=== PATIENT | male | born 1960 | race Caucasian/White ===

== ENCOUNTER 2020-10-16 08:29 | Inpatient (IN) | payer MEDICAID ==
[~2020-10-16] VITALS: Ht 167.6 cm; Wt 113.4 kg
[2020-10-16 09:39] LABS: BASOPHILS % 0.6 % (0.0-2.0); HEMATOCRIT. 29.8 % (42.0-52.0); HEMOGLOBIN. 10.2 g/dL (14.0-18.0); LYMPHOCYTES % 28.2 % (20.0-50.0); MEAN CORPUSCULAR HEMOGLOBIN 31.4 pg (28.0-32.0); MEAN CORPUSCULAR VOLUME 92.3 fL (80.0-94.0); MEAN PLATELET VOLUME 9.2 fl (7.4-10.4); MONOCYTES % 7.8 % (2.0-8.0); NEUTROPHILS % 61.4 % (40.0-76.0); PLATELET 194 x1000/uL (130-400); RED BLOOD CELL COUNT 3.23 mill/uL (4.7-6.1); RED CELL DISTRIBUTION WIDTH 15.2 % (11.6-14.6)
[2020-10-16 09:41] LABS: CHLORIDE 112 mEq/L (98-107)
[2020-10-16] MEDS ORDERED: ONDANSETRON HCL 4MG/2ML INJ IV PRN (11:30)
[2020-10-16] MEDS ORDERED: DIPHENHYDRAMINE 50MG/ML VIAL IV PRN (11:30)
[2020-10-16] MEDS ORDERED: MORPHINE SULFATE 2 MG/ML CPJ (NOT FOR IM USE) IV PRN (11:30)
[2020-10-16] MEDS ORDERED: IPRATROPIUM/ALBUTEROL 0.5-3(2.5)MG/3ML NEB HHN PRN (11:30)
[2020-10-16] MEDS ORDERED: ACETAMINOPHEN 325MG TABLET PO PRN (11:30)
[2020-10-16] MEDS: CLOPIDOGREL 75MG TABLET PO SCH (14:14)
[2020-10-16] MEDS: ASPIRIN 81MG EC TABLET PO SCH (14:14)
[2020-10-16 14:16] VITALS: BP 160/74
[2020-10-16 14:30] VITALS: BP 170/74
[2020-10-16 16:00] VITALS: BP 155/56
[2020-10-16] MEDS: SUCRALFATE 1G TABLET PO SCH ×2 (18:19→20:17)
[2020-10-16 20:00] VITALS: BP 159/57
[2020-10-16] MEDS: ATORVASTATIN CALCIUM 40MG TABLET PO SCH (20:17)
[2020-10-16] MEDS ORDERED: INFLUENZA VACCINE 05/PF 0.5 ML VIAL IM ONE (20:30)
[2020-10-16] MEDS ORDERED: PNEUMOCOCCAL 23-VAL P-SAC VAC 0.5 ML IM ONE (20:30)
[2020-10-17] VITALS: BP 144/52
[2020-10-17 04:00] VITALS: BP 144/61
[2020-10-17] MEDS: SUCRALFATE 1G TABLET PO SCH ×4 (06:02→20:23)
[2020-10-17] MEDS: PANTOPRAZOLE 40MG DR TABLET PO SCH (06:03)
[2020-10-17 06:17] LABS: BASOPHILS % 0.5 % (0.0-2.0); EOSINOPHILS % 3.7 % (0.0-5.0); HEMATOCRIT. 28.2 % (42.0-52.0); HEMOGLOBIN. 9.9 g/dL (14.0-18.0); LYMPHOCYTES % 34.8 % (20.0-50.0); MEAN CORPUSCULAR HEMOGLOBIN 32.4 pg (28.0-32.0); MEAN CORPUSCULAR VOLUME 92.3 fL (80.0-94.0); MEAN PLATELET VOLUME 9.9 fl (7.4-10.4); MONOCYTES % 8.1 % (2.0-8.0); NEUTROPHILS % 52.9 % (40.0-76.0); PLATELET 179 x1000/uL (130-400); RED BLOOD CELL COUNT 3.05 mill/uL (4.7-6.1); RED CELL DISTRIBUTION WIDTH 15.5 % (11.6-14.6)
[2020-10-17 07:06] LABS: CHLORIDE 111 mEq/L (98-107)
[2020-10-17 07:16] LABS: HDL CHOLESTEROL 52 mg/dL (40-59)
[2020-10-17 07:20] LABS: LDL CHOLESTEROL 93 mg/dL (5-100)
[2020-10-17 08:00] VITALS: BP 162/82
[2020-10-17] MEDS: ASPIRIN 81MG EC TABLET PO SCH (09:30)
[2020-10-17] MEDS: CLONIDINE 0.1MG TABLET PO PRN ×2 (09:30→20:24)
[2020-10-17] MEDS: CLOPIDOGREL 75MG TABLET PO SCH (09:31)
[2020-10-17 12:00] VITALS: BP 135/62
[2020-10-17 16:00] VITALS: BP 141/64
[2020-10-17 20:00] VITALS: BP 190/78
[2020-10-17] MEDS: ATORVASTATIN CALCIUM 40MG TABLET PO SCH (20:23)
[2020-10-18] VITALS: BP 138/44
[2020-10-18 04:00] VITALS: BP 143/68
[2020-10-18] MEDS: PANTOPRAZOLE 40MG DR TABLET PO SCH (06:19)
[2020-10-18] MEDS: SUCRALFATE 1G TABLET PO SCH ×4 (06:19→21:08)
[2020-10-18 06:56] LABS: BASOPHILS % 0.4 % (0.0-2.0); EOSINOPHILS % 4.9 % (0.0-5.0); HEMOGLOBIN. 10.3 g/dL (14.0-18.0); LYMPHOCYTES % 33.4 % (20.0-50.0); MEAN CORPUSCULAR VOLUME 93.1 fL (80.0-94.0); MEAN PLATELET VOLUME 9.6 fl (7.4-10.4); MONOCYTES % 7.9 % (2.0-8.0); NEUTROPHILS % 53.4 % (40.0-76.0); PLATELET 185 x1000/uL (130-400); RED BLOOD CELL COUNT 3.22 mill/uL (4.7-6.1); RED CELL DISTRIBUTION WIDTH 15.6 % (11.6-14.6)
[2020-10-18 06:59] LABS: CHLORIDE 110 mEq/L (98-107)
[2020-10-18 08:00] VITALS: BP 140/64
[2020-10-18] MEDS: CLOPIDOGREL 75MG TABLET PO SCH (09:01)
[2020-10-18] MEDS: ASPIRIN 81MG EC TABLET PO SCH (09:01)
[2020-10-18 12:00] VITALS: BP 149/67
[2020-10-18 16:00] VITALS: BP 154/66
[2020-10-18 20:00] VITALS: BP 165/75
[2020-10-18] MEDS: ATORVASTATIN CALCIUM 40MG TABLET PO SCH (21:08)
[2020-10-18] MEDS: CLONIDINE 0.1MG TABLET PO PRN (21:17)
[2020-10-19] VITALS: BP 135/64
[2020-10-19 04:00] VITALS: BP 130/76
[2020-10-19] MEDS: PANTOPRAZOLE 40MG DR TABLET PO SCH (05:49)
[2020-10-19] MEDS: SUCRALFATE 1G TABLET PO SCH (05:49)
[2020-10-19 06:51] LABS: BASOPHILS % 0.6 % (0.0-2.0); EOSINOPHILS % 4.4 % (0.0-5.0); HEMATOCRIT. 28.3 % (42.0-52.0); LYMPHOCYTES % 35.6 % (20.0-50.0); MEAN CORPUSCULAR HEMOGLOBIN 32.7 pg (28.0-32.0); MEAN CORPUSCULAR VOLUME 92.5 fL (80.0-94.0); MEAN PLATELET VOLUME 9.8 fl (7.4-10.4); MONOCYTES % 8.3 % (2.0-8.0); NEUTROPHILS % 51.1 % (40.0-76.0); PLATELET 169 x1000/uL (130-400); RED BLOOD CELL COUNT 3.06 mill/uL (4.7-6.1); RED CELL DISTRIBUTION WIDTH 15.4 % (11.6-14.6)
[2020-10-19 08:00] VITALS: BP 140/62
[2020-10-19] MEDS ORDERED: LIP40 PO (08:17)
[2020-10-19] MEDS ORDERED: PANT40TA51 PO (08:17)
[2020-10-19] MEDS ORDERED: SUCR1TAB30 PO (08:17)
[2020-10-19] MEDS ORDERED: CLOP75TA15 PO (08:17)
[2020-10-19] MEDS ORDERED: ASPI-1406 PO (08:17)
[2020-10-19 08:42] VITALS: BP 140/62
[2020-10-19] MEDS: ASPIRIN 81MG EC TABLET PO SCH (09:27)
[2020-10-19] MEDS: CLOPIDOGREL 75MG TABLET PO SCH (09:27)
== END 2020-10-19 12:40 | disposition home or self-care (01) | DRG 203 ==
LOC: ER 08:29 → 5WST 11:17 → ENRESERV 11:46
PROVIDERS: ADMIT Internal Medicine; ATTEND Internal Medicine
DX: M94.0 Chondrocostal junction syndrome [Tietze] (principal); E11.622 Type 2 diabetes mellitus with other skin ulcer; I11.0 Hypertensive heart disease with heart failure; I50.9 Heart failure, unspecified; I25.10 Atherosclerotic heart disease of native coronary artery without angina pectoris; D64.9 Anemia, unspecified; E78.5 Hyperlipidemia, unspecified; J44.9 Chronic obstructive pulmonary disease, unspecified; K29.60 Other gastritis without bleeding; Z95.5 Presence of coronary angioplasty implant and graft; Z88.5 Allergy status to narcotic agent; Z88.0 Allergy status to penicillin; Z79.899 Other long term (current) drug therapy
CPT/HCPCS: 36415; 71045; 80048; 80053; 80061; 82962; 83880; 84443; 84484; 85025; 87070; 90686; 90732; 93005; 93970; 99285; J1200

== ENCOUNTER 2021-09-07 13:44 | Emergency (ER) | payer MEDICAID ==
[~2021-09-07] VITALS: Ht 167.6 cm; Wt 111.0 kg
[~2021-09-07 13:44] MED LIST: ALBU18HF2 IH; ASPI-1406 PO; CLOP75TA15 PO; FURO40TA5 PO; ISOS30TA91 PO; LANC-335 MC; LIP40 PO; ONDA4TAB5 MT; PANT40TA51 PO; SUCR1TAB30 PO
[2021-09-07 16:54] LABS: BASOPHILS % 0.8 % (0.0-2.0); EOSINOPHILS % 2.6 % (0.0-5.0); HEMATOCRIT. 36.2 % (42.0-52.0); HEMOGLOBIN. 11.8 g/dL (14.0-18.0); LYMPHOCYTES % 25.4 % (20.0-50.0); MEAN CORPUSCULAR HEMOGLOBIN 28.8 pg (28.0-32.0); MEAN CORPUSCULAR VOLUME 88.6 fL (80.0-94.0); MEAN PLATELET VOLUME 8.7 fl (7.4-10.4); MONOCYTES % 8.9 % (2.0-8.0); NEUTROPHILS % 62.3 % (40.0-76.0); PLATELET 178 x1000/uL (130-400); RED BLOOD CELL COUNT 4.08 mill/uL (4.7-6.1); RED CELL DISTRIBUTION WIDTH 16.3 % (11.6-14.6)
[2021-09-07 17:00] LABS: CHLORIDE 112 mEq/L (98-107)
[2021-09-07 19:30] VITALS: BP 169/86
[2021-09-07] MEDS ORDERED: FUROSEMIDE 40MG/4ML VIAL IVP ONE (20:00)
== END 2021-09-07 20:11 | disposition left against medical advice (07) ==
LOC: ER 13:44 → CANBEDREQ 09-08 04:19
DX: I11.0 Hypertensive heart disease with heart failure (principal); I50.9 Heart failure, unspecified; I21.3 ST elevation (STEMI) myocardial infarction of unspecified site; J44.1 Chronic obstructive pulmonary disease with (acute) exacerbation; J45.909 Unspecified asthma, uncomplicated; Z20.822 Contact with and (suspected) exposure to COVID-19; Z88.0 Allergy status to penicillin; Z88.5 Allergy status to narcotic agent; Z79.899 Other long term (current) drug therapy; Z98.890 Other specified postprocedural states
CPT/HCPCS: 36415; 71045; 80053; 83880; 84484; 85025; 87426; 93005; 93970; 99285; J1940

== ENCOUNTER 2021-10-14 18:59 | Inpatient (IN) | payer MEDICAID ==
[~2021-10-14] VITALS: Ht 167.6 cm; Wt 121.6 kg
[2021-10-14] MEDS ORDERED: METHYLPREDNISOLONE SOD SUCC 125 MG/2 ML VIAL IV STA (21:04)
[2021-10-14] MEDS ORDERED: IPRATROPIUM BROMIDE (0.02%) 0.5MG/2.5ML NEB HHN STA ×2 (21:04)
[2021-10-14] MEDS ORDERED: ALBUTEROL (0.083%) 2.5MG/3ML NEB HHN STA (21:04)
[2021-10-14] MEDS ORDERED: NITROGLYCERIN OINT 1GM/INCH UDPKT TD ONE (21:15)
[2021-10-14] MEDS ORDERED: ASPIRIN 81MG TABLET PO ONE (21:15)
[2021-10-14] MEDS ORDERED: FUROSEMIDE 40MG/4ML VIAL IV ONE (21:15)
[2021-10-14 21:50] LABS: BASOPHILS % 0.4 % (0.0-2.0); EOSINOPHILS % 1.5 % (0.0-5.0); HEMATOCRIT. 33.2 % (42.0-52.0); HEMOGLOBIN. 10.8 g/dL (14.0-18.0); LYMPHOCYTES % 13.4 % (20.0-50.0); MEAN CORPUSCULAR HEMOGLOBIN 29.1 pg (28.0-32.0); MEAN PLATELET VOLUME 9.2 fl (7.4-10.4); MONOCYTES % 10.3 % (2.0-8.0); NEUTROPHILS % 74.4 % (40.0-76.0); PLATELET 160 x1000/uL (130-400); RED BLOOD CELL COUNT 3.73 mill/uL (4.7-6.1); RED CELL DISTRIBUTION WIDTH 17.5 % (11.6-14.6)
[2021-10-14 22:11] LABS: CHLORIDE 111 mEq/L (98-107)
[2021-10-14] MEDS ORDERED: POTASSIUM CHLORIDE 20MEQ TABLET SR PO ONE (22:30)
[2021-10-14] MEDS ORDERED: MORPHINE SULFATE 4 MG/ML CPJ (NOT FOR IM USE) IV STA (22:48)
[2021-10-14] MEDS ORDERED: ONDANSETRON HCL 4MG/2ML INJ IV STA (22:48)
[2021-10-14] MEDS ORDERED: IPRATROPIUM/ALBUTEROL 0.5-3(2.5)MG/3ML NEB NEB PRN (23:00)
[2021-10-14] MEDS ORDERED: ACETAMINOPHEN 325MG TABLET PO PRN (23:00)
[2021-10-14] MEDS ORDERED: GUAIFENESIN 200MG/10ML SUGAR FREE UDC PO PRN (23:00)
[2021-10-14] MEDS ORDERED: ONDANSETRON HCL 4MG/2ML INJ IV PRN (23:00)
[2021-10-14] MEDS ORDERED: MAGNESIUM/ALUMINUM HYDROXIDE/SIMETHICONE 30ML UDC PO PRN (23:00)
[2021-10-14] MEDS ORDERED: NALOXONE HCL 0.4 MG/ML 1ML VIAL IV PRN (23:15)
[2021-10-15 03:00] VITALS: BP 155/81
[2021-10-15] MEDS: HYDROCODONE/ACETAMINOPHEN 5/325MG TABLET PO PRN ×3 (03:43→23:18)
[2021-10-15 04:00] VITALS: BP 155/81
[2021-10-15 07:03] LABS: HEMATOCRIT. 32.8 % (42.0-52.0); HEMOGLOBIN. 10.8 g/dL (14.0-18.0); MEAN CORPUSCULAR HEMOGLOBIN 29.7 pg (28.0-32.0); MEAN CORPUSCULAR VOLUME 90.2 fL (80.0-94.0); MEAN PLATELET VOLUME 9.3 fl (7.4-10.4); PLATELET 169 x1000/uL (130-400); RED BLOOD CELL COUNT 3.64 mill/uL (4.7-6.1); RED CELL DISTRIBUTION WIDTH 17.2 % (11.6-14.6)
[2021-10-15 07:09] LABS: CHLORIDE 111 mEq/L (98-107)
[2021-10-15 07:18] LABS: PHOSPHORUS 4.8 mg/dL (2.5-4.9)
[2021-10-15 08:08] VITALS: BP 132/76
[2021-10-15] MEDS ORDERED: ENOXAPARIN 40MG/0.4ML SYR SUBCUT SCH (09:00)
[2021-10-15] MEDS ORDERED: ISOSORBIDE MONONITRATE 30MG TABLET SR 24HR PO SCH (09:45)
[2021-10-15] MEDS: CLOPIDOGREL 75MG TABLET PO SCH (10:30)
[2021-10-15] MEDS: ASPIRIN 81MG EC TABLET PO SCH (10:30)
[2021-10-15] MEDS: PANTOPRAZOLE 40MG DR TABLET PO SCH (10:30)
[2021-10-15] MEDS: FUROSEMIDE 40MG/4ML VIAL IVP SCH ×2 (11:20→18:17)
[2021-10-15] MEDS ORDERED: DEXTROSE 50% WATER 50ML SYRINGE IV PRN (11:30)
[2021-10-15 12:00] VITALS: BP 111/56
[2021-10-15] MEDS: NITROGLYCERIN OINT 1GM/INCH UDPKT TD SCH ×3 (12:00→23:19)
[2021-10-15] MEDS ORDERED: INFLUENZA VACCINE 05/PF 0.5 ML SYRINGE IM ONE (12:00)
[2021-10-15] MEDS: BLOOD SUGAR DIAGNOSTIC STRIP TEST SCH ×3 (12:03→21:16)
[2021-10-15] MEDS: INSULIN LISPRO 100 UNITS/ML SUBCUT SCH ×3 (12:26→21:00)
[2021-10-15] MEDS: SUCRALFATE 1G TABLET PO SCH ×3 (12:28→21:15)
[2021-10-15 12:55] LABS: PLATELET ESTIMATE NORMAL
[2021-10-15 16:00] VITALS: BP 115/59
[2021-10-15 20:00] VITALS: BP 118/61
[2021-10-15] MEDS: ENOXAPARIN 40MG/0.4ML SYR SUBCUT SCH (21:15)
[2021-10-15] MEDS: ATORVASTATIN CALCIUM 40MG TABLET PO SCH (21:15)
[2021-10-15] MEDS ORDERED: METHYLPREDNISOLONE SOD SUCC 125 MG/2 ML VIAL IV SCH (22:00)
[2021-10-16] VITALS: BP 99/52
[2021-10-16 04:00] VITALS: BP 128/67
[2021-10-16] MEDS: PANTOPRAZOLE 40MG DR TABLET PO SCH (06:38)
[2021-10-16] MEDS: NITROGLYCERIN OINT 1GM/INCH UDPKT TD SCH ×4 (06:38→23:46)
[2021-10-16] MEDS: SUCRALFATE 1G TABLET PO SCH ×4 (06:38→20:38)
[2021-10-16] MEDS: BLOOD SUGAR DIAGNOSTIC STRIP TEST SCH ×4 (06:38→20:39)
[2021-10-16 07:13] LABS: HEMATOCRIT. 32.3 % (42.0-52.0); HEMOGLOBIN. 10.7 g/dL (14.0-18.0); MEAN CORPUSCULAR HEMOGLOBIN 29.7 pg (28.0-32.0); MEAN CORPUSCULAR VOLUME 89.9 fL (80.0-94.0); MEAN PLATELET VOLUME 9.4 fl (7.4-10.4); PLATELET 169 x1000/uL (130-400); RED CELL DISTRIBUTION WIDTH 17.5 % (11.6-14.6)
[2021-10-16 07:22] LABS: CHLORIDE 108 mEq/L (98-107)
[2021-10-16 08:00] VITALS: BP 148/72
[2021-10-16] MEDS: ASPIRIN 81MG EC TABLET PO SCH (08:32)
[2021-10-16] MEDS: INSULIN LISPRO 100 UNITS/ML SUBCUT SCH ×4 (08:32→20:39)
[2021-10-16] MEDS: ENOXAPARIN 40MG/0.4ML SYR SUBCUT SCH ×2 (08:33→20:38)
[2021-10-16] MEDS: FUROSEMIDE 40MG/4ML VIAL IVP SCH ×2 (08:33→17:15)
[2021-10-16] MEDS: CLOPIDOGREL 75MG TABLET PO SCH (08:33)
[2021-10-16 08:36] LABS: PLATELET ESTIMATE NORMAL
[2021-10-16 12:18] VITALS: BP 131/64
[2021-10-16 12:29] LABS: INR 1.1; PROTHROMBIN TIME 11.8 sec (9.6-11.0)
[2021-10-16] MEDS ORDERED: IPRATROPIUM/ALBUTEROL 0.5-3(2.5)MG/3ML NEB HHN PRN (13:15)
[2021-10-16 15:43] VITALS: BP 125/70
[2021-10-16 16:53] LABS: TOTAL IRON BINDING CAPACITY 424 ug/dL (250-450)
[2021-10-16 17:14] LABS: CARCINO EMBRYONIC ANTIGEN 1.7 ng/ml; FERRITIN 56 ng/mL (22-322)
[2021-10-16 17:22] LABS: VITAMIN B12 SERUM 348 pg/mL (211-911)
[2021-10-16 17:25] LABS: HEPATITIS B SURFACE ANTIGEN NEGATIVE
[2021-10-16 20:00] VITALS: BP 138/61
[2021-10-16] MEDS: ATORVASTATIN CALCIUM 40MG TABLET PO SCH (20:38)
[2021-10-16] MEDS: HYDROCODONE/ACETAMINOPHEN 5/325MG TABLET PO PRN (23:53)
[2021-10-17] VITALS: BP 122/58
[2021-10-17] MEDS: IPRATROPIUM/ALBUTEROL 0.5-3(2.5)MG/3ML NEB NEB SCH ×6 (00:29→21:51)
[2021-10-17 04:00] VITALS: BP 126/60
[2021-10-17] MEDS: NITROGLYCERIN OINT 1GM/INCH UDPKT TD SCH ×4 (06:40→23:39)
[2021-10-17] MEDS: BLOOD SUGAR DIAGNOSTIC STRIP TEST SCH ×4 (06:40→21:25)
[2021-10-17] MEDS: PANTOPRAZOLE 40MG DR TABLET PO SCH (06:40)
[2021-10-17] MEDS: SUCRALFATE 1G TABLET PO SCH ×4 (06:40→21:24)
[2021-10-17 06:45] LABS: BASOPHILS % 0.2 % (0.0-2.0); EOSINOPHILS % 0.7 % (0.0-5.0); HEMATOCRIT. 32.1 % (42.0-52.0); HEMOGLOBIN. 10.3 g/dL (14.0-18.0); LYMPHOCYTES % 15.4 % (20.0-50.0); MEAN CORPUSCULAR HEMOGLOBIN 29.1 pg (28.0-32.0); MEAN CORPUSCULAR VOLUME 90.4 fL (80.0-94.0); MEAN PLATELET VOLUME 9.2 fl (7.4-10.4); MONOCYTES % 8.6 % (2.0-8.0); NEUTROPHILS % 75.1 % (40.0-76.0); PLATELET 165 x1000/uL (130-400); RED BLOOD CELL COUNT 3.55 mill/uL (4.7-6.1); RED CELL DISTRIBUTION WIDTH 17.9 % (11.6-14.6)
[2021-10-17 06:55] LABS: INR 1.1; PROTHROMBIN TIME 11.4 sec (9.6-11.0)
[2021-10-17] MEDS ORDERED: METOLAZONE 2.5MG TABLET PO NR (07:30)
[2021-10-17] MEDS: INSULIN LISPRO 100 UNITS/ML SUBCUT SCH ×5 (07:50→21:00)
[2021-10-17 08:00] VITALS: BP 114/59
[2021-10-17] MEDS: HYDROCODONE/ACETAMINOPHEN 5/325MG TABLET PO PRN (08:44)
[2021-10-17] MEDS: FUROSEMIDE 40MG/4ML VIAL IVP SCH (08:44)
[2021-10-17] MEDS: SERTRALINE HCL 25MG TABLET PO SCH (10:47)
[2021-10-17] MEDS: RISPERIDONE 0.5MG TABLET PO SCH ×2 (10:47→21:24)
[2021-10-17 12:00] VITALS: BP 130/71
[2021-10-17] MEDS: GABAPENTIN 100MG CAPSULE PO SCH ×2 (13:27→21:25)
[2021-10-17 16:00] VITALS: BP 104/53
[2021-10-17 16:47] LABS: BG BASE EXCESS 2.7 mmol/L (-2.0-2.0); BG CARBOXYHEMOGLOBIN 0.1 % (0.5-1.5); BG DEOXYHEMOGLOBIN 12.8 % (0.0-5.0); BG FRACTION INSPIRED OXYGEN 21; BG HCO3 ACT 30.2 mmol/L (22.0-26.0); BG METHEMOGLOBIN 0.4 % (0.0-1.5); BG OXYGEN SATURATION 87.1 % (92.0-98.5); BG OXYHEMOGLOBIN 86.7 % (94.0-97.0); BG PCO2 62.4 mmHg (35.0-45.0); BG PH 7.302 (7.350-7.450); BG PO2 55.2 mmHg (75.0-100.0); BG SAMPLE SITE LEFT RADIAL; BG TOTAL HEMOGLOBIN 10.4 g/dL (12.0-18.0); BG VENT MODE ROOM AIR
[2021-10-17] MEDS: ASCORBIC ACID 500 MG TABLET PO SCH (16:51)
[2021-10-17] MEDS: IRON SUCROSE COMPLEX 100 MG/5 ML ML IV SCH (16:52)
[2021-10-17 20:00] VITALS: BP 131/71
[2021-10-17] MEDS: QUETIAPINE FUMARATE 50MG TABLET PO SCH (21:24)
[2021-10-17] MEDS: ATORVASTATIN CALCIUM 40MG TABLET PO SCH (21:25)
[2021-10-17] MEDS: LACTULOSE 20G/30ML UDC PO SCH (21:25)
[2021-10-18] VITALS: BP 128/58
[2021-10-18] MEDS: IPRATROPIUM/ALBUTEROL 0.5-3(2.5)MG/3ML NEB NEB SCH ×6 (01:16→20:48)
[2021-10-18 04:00] VITALS: BP 124/78
[2021-10-18] MEDS: LACTULOSE 20G/30ML UDC PO SCH ×3 (06:24→21:51)
[2021-10-18] MEDS: NITROGLYCERIN OINT 1GM/INCH UDPKT TD SCH ×3 (06:24→16:55)
[2021-10-18] MEDS: SUCRALFATE 1G TABLET PO SCH ×4 (06:25→21:51)
[2021-10-18] MEDS: BLOOD SUGAR DIAGNOSTIC STRIP TEST SCH ×4 (06:25→21:43)
[2021-10-18] MEDS: GABAPENTIN 100MG CAPSULE PO SCH ×3 (06:25→21:51)
[2021-10-18] MEDS: PANTOPRAZOLE 40MG DR TABLET PO SCH (06:25)
[2021-10-18 07:45] LABS: INR 1.1; PROTHROMBIN TIME 11.5 sec (9.6-11.0)
[2021-10-18] MEDS: INSULIN LISPRO 100 UNITS/ML SUBCUT SCH ×4 (07:50→21:56)
[2021-10-18 07:52] LABS: BASOPHILS % 0.4 % (0.0-2.0); EOSINOPHILS % 1.1 % (0.0-5.0); HEMATOCRIT. 30.5 % (42.0-52.0); MEAN CORPUSCULAR HEMOGLOBIN 29.8 pg (28.0-32.0); MEAN CORPUSCULAR VOLUME 90.8 fL (80.0-94.0); MEAN PLATELET VOLUME 9.4 fl (7.4-10.4); NEUTROPHILS % 68.5 % (40.0-76.0); PLATELET 88 x1000/uL (130-400); RED BLOOD CELL COUNT 3.36 mill/uL (4.7-6.1); RED CELL DISTRIBUTION WIDTH 17.5 % (11.6-14.6)
[2021-10-18 08:00] VITALS: BP 136/65
[2021-10-18 08:06] LABS: CHLORIDE 108 mEq/L (98-107)
[2021-10-18] MEDS: SERTRALINE HCL 25MG TABLET PO SCH (08:46)
[2021-10-18] MEDS: RISPERIDONE 0.5MG TABLET PO SCH ×2 (08:46→18:43)
[2021-10-18] MEDS: ASCORBIC ACID 500 MG TABLET PO SCH ×2 (08:46→16:55)
[2021-10-18 10:11] LABS: BG BASE EXCESS 6.4 mmol/L (-2.0-2.0); BG CARBOXYHEMOGLOBIN 0.1 % (0.5-1.5); BG DEOXYHEMOGLOBIN 18.6 % (0.0-5.0); BG METHEMOGLOBIN 0.1 % (0.0-1.5); BG OXYGEN SATURATION 81.4 % (92.0-98.5); BG OXYHEMOGLOBIN 81.2 % (94.0-97.0); BG PCO2 75.1 mmHg (35.0-45.0); BG PH 7.286 (7.350-7.450); BG PO2 47.8 mmHg (75.0-100.0); BG SAMPLE SITE RIGHT RADIAL; BG TOTAL HEMOGLOBIN 10.6 g/dL (12.0-18.0); BG VENT MODE NASAL CANNULA
[2021-10-18] MEDS ORDERED: LIDOCAINE HCL/PF 1% 2ML VIAL ONE (11:13)
[2021-10-18 12:03] LABS: BG BASE EXCESS 5.8 mmol/L (-2.0-2.0); BG CARBOXYHEMOGLOBIN 0.1 % (0.5-1.5); BG DEOXYHEMOGLOBIN 1.7 % (0.0-5.0); BG HCO3 ACT 34.2 mmol/L (22.0-26.0); BG METHEMOGLOBIN 0.3 % (0.0-1.5); BG OXYGEN SATURATION 98.3 % (92.0-98.5); BG OXYHEMOGLOBIN 97.9 % (94.0-97.0); BG PCO2 74.1 mmHg (35.0-45.0); BG PH 7.282 (7.350-7.450); BG PO2 130.4 mmHg (75.0-100.0); BG SAMPLE SITE RIGHT RADIAL; BG TOTAL HEMOGLOBIN 10.3 g/dL (12.0-18.0); BG VENT MODE NASAL CANNULA
[2021-10-18 12:15] VITALS: BP 117/58
[2021-10-18] MEDS ORDERED: IOHEXOL-350 100 ML BOTTLE ONE (13:33)
[2021-10-18] MEDS ORDERED: FUROSEMIDE 40MG/4ML VIAL IVP SCH (14:00)
[2021-10-18] MEDS: IRON SUCROSE COMPLEX 100 MG/5 ML ML IV SCH (15:02)
[2021-10-18 15:52] VITALS: BP 138/61
[2021-10-18] MEDS: QUETIAPINE FUMARATE 50MG TABLET PO SCH (18:45)
[2021-10-18 20:00] VITALS: BP 133/81
[2021-10-18] MEDS: ATORVASTATIN CALCIUM 40MG TABLET PO SCH (21:51)
[2021-10-19] VITALS: BP 155/95
[2021-10-19] MEDS: IPRATROPIUM/ALBUTEROL 0.5-3(2.5)MG/3ML NEB NEB SCH ×6 (00:37→20:41)
[2021-10-19] MEDS: NITROGLYCERIN OINT 1GM/INCH UDPKT TD SCH ×4 (01:01→18:16)
[2021-10-19 04:31] VITALS: BP 118/64
[2021-10-19] MEDS: SUCRALFATE 1G TABLET PO SCH ×4 (06:19→21:41)
[2021-10-19] MEDS: LACTULOSE 20G/30ML UDC PO SCH ×3 (06:19→21:41)
[2021-10-19] MEDS: PANTOPRAZOLE 40MG DR TABLET PO SCH (06:19)
[2021-10-19] MEDS: GABAPENTIN 100MG CAPSULE PO SCH ×3 (06:19→21:41)
[2021-10-19] MEDS: BLOOD SUGAR DIAGNOSTIC STRIP TEST SCH ×4 (06:51→21:50)
[2021-10-19] MEDS: INSULIN LISPRO 100 UNITS/ML SUBCUT SCH ×4 (07:50→21:50)
[2021-10-19 08:00] VITALS: BP 155/91
[2021-10-19] MEDS: SERTRALINE HCL 25MG TABLET PO SCH (09:00)
[2021-10-19] MEDS: FUROSEMIDE 40MG/4ML VIAL IVP SCH (09:00)
[2021-10-19] MEDS: RISPERIDONE 0.5MG TABLET PO SCH (09:00)
[2021-10-19] MEDS: ASCORBIC ACID 500 MG TABLET PO SCH ×2 (09:00→18:16)
[2021-10-19 10:38] LABS: BASOPHILS % 0.6 % (0.0-2.0); EOSINOPHILS % 1.5 % (0.0-5.0); HEMATOCRIT. 29.9 % (42.0-52.0); MEAN CORPUSCULAR VOLUME 89.2 fL (80.0-94.0); MONOCYTES % 8.6 % (2.0-8.0); NEUTROPHILS % 74.3 % (40.0-76.0); PLATELET 137 x1000/uL (130-400); RED BLOOD CELL COUNT 3.35 mill/uL (4.7-6.1); RED CELL DISTRIBUTION WIDTH 16.5 % (11.6-14.6)
[2021-10-19 10:44] LABS: CHLORIDE 103 mEq/L (98-107)
[2021-10-19 10:46] LABS: INR 1.1; PROTHROMBIN TIME 11.8 sec (9.6-11.0)
[2021-10-19 12:00] VITALS: BP 150/82
[2021-10-19 13:56] LABS: BG BASE EXCESS 10.9 mmol/L (-2.0-2.0); BG CARBOXYHEMOGLOBIN 0.6 % (0.5-1.5); BG DEOXYHEMOGLOBIN 12.1 % (0.0-5.0); BG HCO3 ACT 37.4 mmol/L (22.0-26.0); BG METHEMOGLOBIN 0.3 % (0.0-1.5); BG OXYGEN SATURATION 87.8 % (92.0-98.5); BG PCO2 59.6 mmHg (35.0-45.0); BG PH 7.415 (7.350-7.450); BG SAMPLE SITE RIGHT RADIAL; BG VENT MODE ROOM AIR
[2021-10-19] MEDS: IRON SUCROSE COMPLEX 100 MG/5 ML ML IV SCH ×3 (15:45→18:27)
[2021-10-19 16:00] VITALS: BP 163/87
[2021-10-19] MEDS: CLONIDINE 0.1MG TABLET PO PRN (18:19)
[2021-10-19 20:00] VITALS: BP 130/66
[2021-10-19] MEDS: RISPERIDONE 1MG TABLET PO SCH (21:00)
[2021-10-19] MEDS: ATORVASTATIN CALCIUM 40MG TABLET PO SCH (21:41)
[2021-10-19] MEDS: QUETIAPINE FUMARATE 50MG TABLET PO SCH (21:42)
[2021-10-20] VITALS: BP 107/62
[2021-10-20] MEDS: NITROGLYCERIN OINT 1GM/INCH UDPKT TD SCH ×4 (00:30→18:00)
[2021-10-20] MEDS: IPRATROPIUM/ALBUTEROL 0.5-3(2.5)MG/3ML NEB NEB SCH ×5 (00:57→21:01)
[2021-10-20 04:00] VITALS: BP 120/63
[2021-10-20] MEDS: SUCRALFATE 1G TABLET PO SCH ×4 (06:20→20:56)
[2021-10-20] MEDS: GABAPENTIN 100MG CAPSULE PO SCH (06:20)
[2021-10-20] MEDS: PANTOPRAZOLE 40MG DR TABLET PO SCH (06:21)
[2021-10-20] MEDS: LACTULOSE 20G/30ML UDC PO SCH ×3 (06:21→20:54)
[2021-10-20] MEDS: BLOOD SUGAR DIAGNOSTIC STRIP TEST SCH ×4 (07:20→20:45)
[2021-10-20] MEDS: INSULIN LISPRO 100 UNITS/ML SUBCUT SCH ×4 (07:50→20:45)
[2021-10-20] MEDS: RISPERIDONE 1MG TABLET PO SCH ×3 (09:00→21:00)
[2021-10-20] MEDS: ASCORBIC ACID 500 MG TABLET PO SCH ×2 (09:33→16:21)
[2021-10-20] MEDS: SERTRALINE HCL 25MG TABLET PO SCH (09:33)
[2021-10-20] MEDS: FUROSEMIDE 40MG/4ML VIAL IVP SCH (09:33)
[2021-10-20] MEDS: FERROUS SULFATE 325MG TABLET PO SCH ×2 (09:34→16:21)
[2021-10-20] MEDS ORDERED: METOLAZONE 2.5MG TABLET PO NR (09:45)
[2021-10-20 10:00] VITALS: BP 119/65
[2021-10-20] MEDS ORDERED: HYDROXYZINE 25MG TABLET PO PRN (13:00)
[2021-10-20 16:15] LABS: CHLORIDE 100 mEq/L (98-107)
[2021-10-20 20:00] VITALS: BP 182/92
[2021-10-20] MEDS: CLONIDINE 0.1MG TABLET PO PRN (20:55)
[2021-10-20] MEDS: ATORVASTATIN CALCIUM 40MG TABLET PO SCH (20:56)
[2021-10-21] VITALS: BP 172/94
[2021-10-21] MEDS ORDERED: HYDROCODONE/ACETAMINOPHEN 5/325MG TABLET PO NR (00:15)
[2021-10-21] MEDS: NITROGLYCERIN OINT 1GM/INCH UDPKT TD SCH ×4 (00:33→17:39)
[2021-10-21] MEDS: IPRATROPIUM/ALBUTEROL 0.5-3(2.5)MG/3ML NEB NEB SCH ×6 (01:16→21:08)
[2021-10-21 04:00] VITALS: BP 165/81
[2021-10-21] MEDS: LACTULOSE 20G/30ML UDC PO SCH ×3 (06:00→21:52)
[2021-10-21] MEDS: BLOOD SUGAR DIAGNOSTIC STRIP TEST SCH ×4 (06:37→21:00)
[2021-10-21] MEDS: PANTOPRAZOLE 40MG DR TABLET PO SCH (06:37)
[2021-10-21] MEDS: SUCRALFATE 1G TABLET PO SCH ×4 (06:37→21:51)
[2021-10-21] MEDS: INSULIN LISPRO 100 UNITS/ML SUBCUT SCH ×4 (06:37→21:59)
[2021-10-21] MEDS: ASCORBIC ACID 500 MG TABLET PO SCH ×2 (09:00→16:27)
[2021-10-21] MEDS: SERTRALINE HCL 25MG TABLET PO SCH ×2 (09:00→12:04)
[2021-10-21] MEDS: FUROSEMIDE 40MG/4ML VIAL IVP SCH ×2 (09:00→11:59)
[2021-10-21] MEDS: FERROUS SULFATE 325MG TABLET PO SCH ×2 (09:00→16:27)
[2021-10-21] MEDS: RISPERIDONE 1MG TABLET PO SCH ×2 (09:00→12:03)
[2021-10-21] MEDS: AMLODIPINE 5MG TABLET PO SCH ×2 (10:30→11:59)
[2021-10-21 11:06] LABS: BASOPHILS % 0.3 % (0.0-2.0); EOSINOPHILS % 1.4 % (0.0-5.0); HEMATOCRIT. 31.4 % (42.0-52.0); HEMOGLOBIN. 10.6 g/dL (14.0-18.0); LYMPHOCYTES % 12.4 % (20.0-50.0); MEAN CORPUSCULAR HEMOGLOBIN 29.6 pg (28.0-32.0); MEAN CORPUSCULAR VOLUME 87.3 fL (80.0-94.0); MEAN PLATELET VOLUME 9.6 fl (7.4-10.4); MONOCYTES % 7.1 % (2.0-8.0); NEUTROPHILS % 78.8 % (40.0-76.0); PLATELET 132 x1000/uL (130-400)
[2021-10-21 11:07] LABS: CHLORIDE 97 mEq/L (98-107)
[2021-10-21 11:08] LABS: INR 1.1; PROTHROMBIN TIME 11.9 sec (9.6-11.0)
[2021-10-21 12:00] VITALS: BP 143/68
[2021-10-21 12:39] LABS: BG BASE EXCESS 15.8 mmol/L (-2.0-2.0); BG CARBOXYHEMOGLOBIN 0.6 % (0.5-1.5); BG FRACTION INSPIRED OXYGEN 32; BG HCO3 ACT 42.9 mmol/L (22.0-26.0); BG METHEMOGLOBIN 0.1 % (0.0-1.5); BG OXYHEMOGLOBIN 93.3 % (94.0-97.0); BG PCO2 65.6 mmHg (35.0-45.0); BG PH 7.433 (7.350-7.450); BG PO2 68.7 mmHg (75.0-100.0); BG SAMPLE SITE RIGHT RADIAL; BG TOTAL HEMOGLOBIN 11.6 g/dL (12.0-18.0); BG VENT MODE NASAL CANNULA
[2021-10-21 16:00] VITALS: BP 150/74
[2021-10-21] MEDS: FUROSEMIDE 40MG TABLET PO SCH (16:27)
[2021-10-21] MEDS ORDERED: FUROSEMIDE 40MG/4ML VIAL IVP SCH (17:00)
[2021-10-21] MEDS ORDERED: FUROSEMIDE 40MG/4 ML UDC PO SCH (17:00)
[2021-10-21 20:00] VITALS: BP 141/76
[2021-10-21] MEDS: ATORVASTATIN CALCIUM 40MG TABLET PO SCH (21:51)
[2021-10-21] MEDS: ACETAMINOPHEN 325MG TABLET PO PRN (21:52)
[2021-10-22] VITALS: BP 151/61
[2021-10-22] MEDS: NITROGLYCERIN OINT 1GM/INCH UDPKT TD SCH ×4 (01:10→17:23)
[2021-10-22] MEDS: IPRATROPIUM/ALBUTEROL 0.5-3(2.5)MG/3ML NEB NEB SCH ×6 (01:23→20:06)
[2021-10-22 04:00] VITALS: BP 138/79
[2021-10-22 05:50] LABS: BASOPHILS % 0.3 % (0.0-2.0); EOSINOPHILS % 2.7 % (0.0-5.0); HEMATOCRIT. 30.6 % (42.0-52.0); HEMOGLOBIN. 10.2 g/dL (14.0-18.0); LYMPHOCYTES % 14.6 % (20.0-50.0); MEAN CORPUSCULAR HEMOGLOBIN 29.4 pg (28.0-32.0); MEAN CORPUSCULAR VOLUME 87.9 fL (80.0-94.0); MEAN PLATELET VOLUME 9.7 fl (7.4-10.4); MONOCYTES % 10.3 % (2.0-8.0); NEUTROPHILS % 72.1 % (40.0-76.0); PLATELET 128 x1000/uL (130-400); RED BLOOD CELL COUNT 3.49 mill/uL (4.7-6.1); RED CELL DISTRIBUTION WIDTH 16.3 % (11.6-14.6)
[2021-10-22 06:04] LABS: INR 1.1; PROTHROMBIN TIME 11.9 sec (9.6-11.0)
[2021-10-22] MEDS: LACTULOSE 20G/30ML UDC PO SCH ×4 (06:49→22:00)
[2021-10-22] MEDS: ACETAMINOPHEN 325MG TABLET PO PRN (06:49)
[2021-10-22] MEDS: FUROSEMIDE 40MG TABLET PO SCH ×2 (06:50→17:20)
[2021-10-22] MEDS: BLOOD SUGAR DIAGNOSTIC STRIP TEST SCH ×4 (06:50→21:33)
[2021-10-22] MEDS: PANTOPRAZOLE 40MG DR TABLET PO SCH (06:50)
[2021-10-22] MEDS: SUCRALFATE 1G TABLET PO SCH ×4 (06:50→21:33)
[2021-10-22] MEDS: INSULIN LISPRO 100 UNITS/ML SUBCUT SCH ×4 (07:50→21:00)
[2021-10-22 08:25] VITALS: BP 126/82
[2021-10-22] MEDS: FERROUS SULFATE 325MG TABLET PO SCH ×2 (08:36→17:20)
[2021-10-22] MEDS: AMLODIPINE 5MG TABLET PO SCH (08:36)
[2021-10-22] MEDS: ASCORBIC ACID 500 MG TABLET PO SCH ×2 (08:37→17:20)
[2021-10-22 09:54] LABS: CHLORIDE 94 mEq/L (98-107)
[2021-10-22 12:06] VITALS: BP 138/76
[2021-10-22] MEDS ORDERED: POTASSIUM CHLORIDE 20MEQ TABLET SR PO NR (12:30)
[2021-10-22 16:08] VITALS: BP 132/62
[2021-10-22 20:00] VITALS: BP 142/72
[2021-10-22] MEDS: ATORVASTATIN CALCIUM 40MG TABLET PO SCH (21:32)
[2021-10-23] VITALS: BP 145/68
[2021-10-23] MEDS: NITROGLYCERIN OINT 1GM/INCH UDPKT TD SCH ×3 (00:47→12:09)
[2021-10-23] MEDS: IPRATROPIUM/ALBUTEROL 0.5-3(2.5)MG/3ML NEB NEB SCH ×7 (03:45→23:24)
[2021-10-23 04:00] VITALS: BP 137/62
[2021-10-23] MEDS: LACTULOSE 20G/30ML UDC PO SCH ×4 (06:00→21:03)
[2021-10-23] MEDS: BLOOD SUGAR DIAGNOSTIC STRIP TEST SCH ×4 (06:33→21:03)
[2021-10-23] MEDS: PANTOPRAZOLE 40MG DR TABLET PO SCH (06:33)
[2021-10-23] MEDS: SUCRALFATE 1G TABLET PO SCH ×4 (06:33→21:03)
[2021-10-23] MEDS: FUROSEMIDE 40MG TABLET PO SCH ×2 (06:33→18:01)
[2021-10-23 06:49] LABS: BASOPHILS % 0.3 % (0.0-2.0); EOSINOPHILS % 2.7 % (0.0-5.0); HEMATOCRIT. 32.4 % (42.0-52.0); HEMOGLOBIN. 10.9 g/dL (14.0-18.0); MEAN CORPUSCULAR HEMOGLOBIN 29.2 pg (28.0-32.0); MEAN CORPUSCULAR VOLUME 86.8 fL (80.0-94.0); MEAN PLATELET VOLUME 9.5 fl (7.4-10.4); PLATELET 138 x1000/uL (130-400); RED BLOOD CELL COUNT 3.73 mill/uL (4.7-6.1)
[2021-10-23 06:52] LABS: CHLORIDE 94 mEq/L (98-107)
[2021-10-23 06:55] LABS: INR 1.1
[2021-10-23] MEDS: INSULIN LISPRO 100 UNITS/ML SUBCUT SCH ×4 (07:38→21:22)
[2021-10-23 08:05] VITALS: BP 168/60
[2021-10-23] MEDS: FERROUS SULFATE 325MG TABLET PO SCH ×2 (08:48→18:01)
[2021-10-23] MEDS: ASCORBIC ACID 500 MG TABLET PO SCH ×2 (08:48→18:00)
[2021-10-23] MEDS: CLONIDINE 0.1MG TABLET PO PRN (08:48)
[2021-10-23] MEDS: AMLODIPINE 5MG TABLET PO SCH (08:48)
[2021-10-23] MEDS ORDERED: ASCO500T20 PO ×2 (10:15)
[2021-10-23] MEDS ORDERED: AMLO5TAB88 PO ×2 (10:15)
[2021-10-23] MEDS ORDERED: HYDR-3735 PO ×2 (10:15)
[2021-10-23] MEDS ORDERED: TOPUD PO ×2 (10:15)
[2021-10-23] MEDS ORDERED: NITR1OIN TD ×2 (10:15)
[2021-10-23] MEDS ORDERED: LACT10SO7 PO ×2 (10:15)
[2021-10-23 12:00] VITALS: BP 132/52
[2021-10-23] MEDS ORDERED: POTASSIUM CHLORIDE 20MEQ TABLET SR PO NR (12:00)
[2021-10-23 16:00] VITALS: BP_SYST 122; BP_SYST 124; BP_DIAS 54; BP_DIAS 55
[2021-10-23 20:00] VITALS: BP 125/60
[2021-10-23] MEDS: ATORVASTATIN CALCIUM 40MG TABLET PO SCH (21:03)
[2021-10-24] VITALS: BP 144/65
[2021-10-24] MEDS: IPRATROPIUM/ALBUTEROL 0.5-3(2.5)MG/3ML NEB NEB SCH ×5 (03:26→20:19)
[2021-10-24 04:00] VITALS: BP 130/64
[2021-10-24] MEDS: PANTOPRAZOLE 40MG DR TABLET PO SCH (06:20)
[2021-10-24] MEDS: LACTULOSE 20G/30ML UDC PO SCH ×3 (06:20→22:00)
[2021-10-24] MEDS: FUROSEMIDE 40MG TABLET PO SCH ×2 (06:20→16:26)
[2021-10-24] MEDS: SUCRALFATE 1G TABLET PO SCH ×4 (06:20→22:15)
[2021-10-24] MEDS: BLOOD SUGAR DIAGNOSTIC STRIP TEST SCH ×4 (06:20→21:00)
[2021-10-24] MEDS: INSULIN LISPRO 100 UNITS/ML SUBCUT SCH ×4 (07:50→22:15)
[2021-10-24 08:00] VITALS: BP 141/62
[2021-10-24 09:32] LABS: BASOPHILS % 0.2 % (0.0-2.0); EOSINOPHILS % 3.2 % (0.0-5.0); HEMATOCRIT. 35.2 % (42.0-52.0); HEMOGLOBIN. 11.8 g/dL (14.0-18.0); LYMPHOCYTES % 17.9 % (20.0-50.0); MEAN CORPUSCULAR HEMOGLOBIN 29.5 pg (28.0-32.0); MEAN CORPUSCULAR VOLUME 87.8 fL (80.0-94.0); MEAN PLATELET VOLUME 9.2 fl (7.4-10.4); NEUTROPHILS % 69.7 % (40.0-76.0); PLATELET 140 x1000/uL (130-400); RED BLOOD CELL COUNT 4.01 mill/uL (4.7-6.1); RED CELL DISTRIBUTION WIDTH 16.6 % (11.6-14.6)
[2021-10-24] MEDS: ISOSORBIDE MONONITRATE 60MG TABLET SR 24HR PO SCH (09:34)
[2021-10-24] MEDS: AMLODIPINE 5MG TABLET PO SCH (09:34)
[2021-10-24] MEDS: ASCORBIC ACID 500 MG TABLET PO SCH ×2 (09:34→16:26)
[2021-10-24] MEDS: FERROUS SULFATE 325MG TABLET PO SCH ×2 (09:34→16:26)
[2021-10-24 09:41] LABS: INR 1.1; PROTHROMBIN TIME 11.8 sec (9.6-11.0)
[2021-10-24 09:42] LABS: CHLORIDE 95 mEq/L (98-107)
[2021-10-24 12:00] VITALS: BP 114/49
[2021-10-24] MEDS ORDERED: POTASSIUM CHLORIDE 20MEQ TABLET SR PO SCH (14:45)
[2021-10-24 16:52] VITALS: BP 110/59
[2021-10-24 20:00] VITALS: BP 114/52
[2021-10-24] MEDS: ATORVASTATIN CALCIUM 40MG TABLET PO SCH (22:13)
[2021-10-25] VITALS: BP 124/58
[2021-10-25] MEDS: IPRATROPIUM/ALBUTEROL 0.5-3(2.5)MG/3ML NEB NEB SCH ×5 (01:06→16:52)
[2021-10-25 04:00] VITALS: BP 113/58
[2021-10-25] MEDS: LACTULOSE 20G/30ML UDC PO SCH ×2 (06:48→13:09)
[2021-10-25] MEDS: INSULIN LISPRO 100 UNITS/ML SUBCUT SCH ×3 (06:49→16:24)
[2021-10-25] MEDS: FUROSEMIDE 40MG TABLET PO SCH ×2 (06:49→16:39)
[2021-10-25] MEDS: SUCRALFATE 1G TABLET PO SCH ×3 (06:49→16:39)
[2021-10-25] MEDS: BLOOD SUGAR DIAGNOSTIC STRIP TEST SCH ×3 (06:49→16:24)
[2021-10-25] MEDS: PANTOPRAZOLE 40MG DR TABLET PO SCH (06:49)
[2021-10-25 07:40] VITALS: BP 153/68
[2021-10-25] MEDS: FERROUS SULFATE 325MG TABLET PO SCH ×2 (08:49→16:39)
[2021-10-25] MEDS: ISOSORBIDE MONONITRATE 60MG TABLET SR 24HR PO SCH (08:49)
[2021-10-25] MEDS: ASCORBIC ACID 500 MG TABLET PO SCH ×2 (08:49→16:39)
[2021-10-25] MEDS: AMLODIPINE 5MG TABLET PO SCH (08:49)
[2021-10-25 12:00] VITALS: BP 118/54
[2021-10-25] MEDS ORDERED: ISOS60TA76 PO (14:07)
[2021-10-25 15:26] VITALS: BP 118/54
[2021-10-25 16:04] VITALS: BP 110/62
== END 2021-10-25 18:37 | disposition home health service (06) | DRG 194 ==
LOC: ER 18:59 → MICUSO 22:33 → SUPCPDRO 22:39 → 6WST 10-15 01:06
PROVIDERS: ADMIT Internal Medicine; ATTEND Internal Medicine
PROC: 5A09357 Assistance with Respiratory Ventilation, Less than 24 Consecutive Hours, Continuous Positive Airway Pressure (ICD-10-PCS; principal; 2021-10-17)
DX: I11.0 Hypertensive heart disease with heart failure (principal); J96.01 Acute respiratory failure with hypoxia; G93.40 Encephalopathy, unspecified; J96.02 Acute respiratory failure with hypercapnia; E72.20 Disorder of urea cycle metabolism, unspecified; K76.6 Portal hypertension; F25.0 Schizoaffective disorder, bipolar type; D64.9 Anemia, unspecified; E11.9 Type 2 diabetes mellitus without complications; I69.354 Hemiplegia and hemiparesis following cerebral infarction affecting left non-dominant side; K74.60 Unspecified cirrhosis of liver; E78.5 Hyperlipidemia, unspecified; E87.6 Hypokalemia; J44.9 Chronic obstructive pulmonary disease, unspecified; I50.43 Acute on chronic combined systolic (congestive) and diastolic (congestive) heart failure; I42.9 Cardiomyopathy, unspecified; I31.3 Pericardial effusion (noninflammatory); G47.00 Insomnia, unspecified; F41.9 Anxiety disorder, unspecified; K57.90 Diverticulosis of intestine, part unspecified, without perforation or abscess without bleeding; T45.526A Underdosing of antithrombotic drugs, initial encounter; T39.016A Underdosing of aspirin, initial encounter; Z20.822 Contact with and (suspected) exposure to COVID-19; R07.9 Chest pain, unspecified; I50.82 Biventricular heart failure; I25.10 Atherosclerotic heart disease of native coronary artery without angina pectoris; K29.60 Other gastritis without bleeding; E66.01 Morbid (severe) obesity due to excess calories; N28.9 Disorder of kidney and ureter, unspecified; G47.33 Obstructive sleep apnea (adult) (pediatric); I25.2 Old myocardial infarction; Z87.891 Personal history of nicotine dependence; Z59.01 Sheltered homelessness; Z79.899 Other long term (current) drug therapy; Y92.89 Other specified places as the place of occurrence of the external cause; Z95.5 Presence of coronary angioplasty implant and graft; Z68.41 Body mass index [BMI] 40.0-44.9, adult; Z88.0 Allergy status to penicillin; Z88.5 Allergy status to narcotic agent; Z91.013 Allergy to seafood; Z79.02 Long term (current) use of antithrombotics/antiplatelets; Z79.82 Long term (current) use of aspirin
CPT/HCPCS: 36415; 36600; 71045; 74178; 76700; 80048; 80053; 80076; 82105; 82140; 82248; 82375; 82378; 82607; 82728; 82746; 82805; 82962; 83036; 83540; 83550; 83735; 83880; 84100; 84484; 85025; 85044; 86301; 86705; 86709; 86803; 87340; 90686; 93005; 93306; 94640; 94660; 97110; 97162; 97166; 97530; 97535; 99285; A4565; C1893; J1650; J1815; J1940; J2270; J2405; J2930; J3490; Q9967